=== PATIENT | female | born 1955 | race Hispanic/Latino ===

== ENCOUNTER 2021-07-27 17:24 | Emergency (ER) | payer MEDICARE, OTHER ==
[~2021-07-27] VITALS: Ht 162.6 cm; Wt 72.6 kg
[2021-07-27] MEDS ORDERED: IBUPROFEN 600 MG TAB PO STA (17:53)
[2021-07-27] MEDS ORDERED: IBUPROFEN 600 MG TAB ONE (18:09)
[2021-07-27] MEDS ORDERED: NAPROSYN500 MG PO (19:46)
[2021-07-27 20:10] VITALS: BP 185/77
== END 2021-07-27 20:10 | disposition home or self-care (01) ==
LOC: FSED 17:42
DX: S42.202A Unspecified fracture of upper end of left humerus, initial encounter for closed fracture (principal); M25.561 Pain in right knee; W18.30XA Fall on same level, unspecified, initial encounter; Y93.01 Activity, walking, marching and hiking; Y92.488 Other paved roadways as the place of occurrence of the external cause; I10 Essential (primary) hypertension; E11.9 Type 2 diabetes mellitus without complications; F17.210 Nicotine dependence, cigarettes, uncomplicated
CPT/HCPCS: 99283